=== PATIENT | female | born 2000 | race Caucasian/White ===

== ENCOUNTER 2022-05-02 10:03 | Outpatient (CLI) | payer BC, SELFPAY ==
[2022-05-02 10:27] LABS: Albumin* 4.4 g/dL (3.3-5.0); Chloride* 106 mmol/L (96-114); Potassium* 3.8 mmol/L (3.6-5.1); Sodium* 138 mmol/L (135-149)
[2022-05-02 10:29] LABS: Bilirubin Total* 0.7 mg/dL (0.1-1.5); Carbon Dioxide* 26 mmol/L (20-32); Creatinine* 0.7 mg/dL (0.5-1.5); Estimated Glomerular Filt Rate 125 ml/min
[2022-05-02 10:30] LABS: Alanine Aminotransferase* 18 U/L (4-35); Alkaline Phosphatase* 53 U/L (40-150); Aspartate Amino Transferase* 16 U/L (12-35); Blood Urea Nitrogen* 9 mg/dL (5-24); Calcium* 9.4 mg/dL (8.4-10.6); Glucose* 88 mg/dL (60-115); Total Protein* 6.9 g/dL (6.0-8.3); Triglycerides* 133 mg/dL (40-149)
[2022-05-02 10:31] LABS: HDL Cholesterol* 82 mg/dL (>=50)
[2022-05-03 18:54] LABS: Cholesterol* 186 mg/dL (90-199); LDL Cholesterol Calculated 77 mg/dL (<100)
== END 2022-05-02 10:04 | disposition home or self-care (01) ==
PROVIDERS: PCP Family Medicine; Visit Provider Family Medicine
DX: Z13.6 Encounter for screening for cardiovascular disorders (principal)
CPT/HCPCS: 80053; 80061

== ENCOUNTER 2022-05-09 08:13 | Outpatient (CLI) | payer BC, SELFPAY ==
[2022-05-09 10:59] LABS: Albumin* 4.3 g/dL (3.3-5.0); Chloride* 107 mmol/L (96-114)
[2022-05-09 11:00] LABS: Potassium* 3.9 mmol/L (3.6-5.1); Sodium* 136 mmol/L (135-149)
[2022-05-09 11:02] LABS: Alkaline Phosphatase* 49 U/L (40-150); Aspartate Amino Transferase* 15 U/L (12-35); Bilirubin Total* 0.4 mg/dL (0.1-1.5); Blood Urea Nitrogen* 8 mg/dL (5-24); Carbon Dioxide* 23 mmol/L (20-32); Cholesterol* 176 mg/dL (90-199); Creatinine* 0.7 mg/dL (0.5-1.5); Estimated Glomerular Filt Rate 125 ml/min; Total Protein* 6.8 g/dL (6.0-8.3)
[2022-05-09 11:03] LABS: Alanine Aminotransferase* 19 U/L (4-35); Calcium* 9.1 mg/dL (8.4-10.6); Glucose* 80 mg/dL (60-115); HDL Cholesterol* 81 mg/dL (>=50); LDL Cholesterol Calculated 69 mg/dL (<100); Triglycerides* 129 mg/dL (40-149)
[2022-05-11 19:50] LABS: Vitamin B12* 227 pg/mL (243-894)
== END 2022-05-09 08:14 | disposition home or self-care (01) ==
LOC: NFLDREF 08:13
PROVIDERS: PCP Family Medicine; Visit Provider Family Medicine
DX: Z01.419 Encounter for gynecological examination (general) (routine) without abnormal findings (principal); E53.8 Deficiency of other specified B group vitamins; Z13.6 Encounter for screening for cardiovascular disorders; Z12.4 Encounter for screening for malignant neoplasm of cervix; Z11.3 Encounter for screening for infections with a predominantly sexual mode of transmission
CPT/HCPCS: 80053; 80061; 82607

== ENCOUNTER 2022-05-11 14:07 | Outpatient (CLI) | payer BC, SELFPAY ==
[2022-05-11 18:49] LABS: Chlamydia DNA Amplified* NOT DETECTED (No Detected); GC DNA Amplified* NOT DETECTED (No Detected)
== END 2022-05-11 14:08 | disposition home or self-care (01) ==
PROVIDERS: PCP Family Medicine; Visit Provider Family Medicine
DX: Z01.419 Encounter for gynecological examination (general) (routine) without abnormal findings (principal); E53.8 Deficiency of other specified B group vitamins; N92.3 Ovulation bleeding; Z11.3 Encounter for screening for infections with a predominantly sexual mode of transmission
CPT/HCPCS: 87491; 87591

== ENCOUNTER 2023-06-25 15:19 | Outpatient (CLI) | payer BC, SELFPAY | END 2023-06-25 15:20 | disposition home or self-care (01) | LOC: NFLDREF 07-04 12:34 | PROVIDERS: PCP Family Medicine; Referring Provider Family Medicine; Visit Provider Family Medicine | DX: Z00.00 Encounter for general adult medical examination without abnormal findings (principal); E78.5 Hyperlipidemia, unspecified; E53.8 Deficiency of other specified B group vitamins | CPT/HCPCS: 80053; 80061; 82607 ==

== ENCOUNTER 2024-06-26 08:03 | Outpatient (CLI) | payer BC, SELFPAY | END 2024-06-26 08:04 | disposition home or self-care (01) | LOC: NFLDREF 06-27 09:53 | PROVIDERS: PCP Family Medicine; Referring Provider Family Medicine; Visit Provider Family Medicine | DX: E53.8 Deficiency of other specified B group vitamins (principal); E34.9 Endocrine disorder, unspecified | CPT/HCPCS: 82607; 82728; 84443 ==